=== PATIENT | male | born 1985 | race African-American/Black ===

== ENCOUNTER 2017-04-16 09:04 | Emergency (ER) | payer SELFPAY ==
[~2017-04-16] VITALS: Ht 175.3 cm; Wt 59.0 kg
[2017-04-16 09:14] VITALS: BP 129/80
[2017-04-16] MEDS ORDERED: NAPROXEN 500 MG TABLET PO STA (09:34)
[2017-04-16] MEDS ORDERED: HYDROcodone/APAP 5/325MG 1 TAB TABLET PO ONE (09:45)
[2017-04-16] MEDS ORDERED: predniSONE 20 MG TABLET PO ONE (09:45)
[2017-04-16] MEDS ORDERED: CYCLOBENZAPRINE 10 MG TABLET. PO ONE (09:45)
[2017-04-16] MEDS ORDERED: CYCL10TA2 PO (09:47)
[2017-04-16] MEDS ORDERED: NAPR500T8 PO (09:47)
[2017-04-16] MEDS ORDERED: HYDR-971 PO (09:47)
[2017-04-16] MEDS ORDERED: METH4TAB2 PO (09:47)
--- NOTE | 2017-04-16 09:48 | PHYS DOC ---
Past Medical History Past Medical History: No Pertinent History Past Surgical History: No Surgical History Alcohol Use: Occasionally Additional Information: 2-3 DRINKS WEEKLY Drug Use: Marijuana Adult General Chief Complaint Chief Complaint: Neck Pain HPI HPI Patient is a 32 year old male with no significant medical history who presents with neck and low back pain. Patient states one week ago he had low back pain radiating into the mid back. He states yesterday he stretched and developed left lateral neck pain as well as right lateral neck pain, patient describes the pain as throbbing and rates the pain as mild. Patient states his pain is worse when he turns his neck to the sides. Patient denies any trauma. Denies any pain radiating to bilateral lower extremities. Denies any loss of bowel bladder function. Review of Systems Review of Systems Constitutional: Denies fever or chills [] Eyes: Denies change in visual acuity, redness, or eye pain [] HENT: Denies nasal congestion or sore throat [] Respiratory: Denies cough or shortness of breath [] Cardiovascular: No additional information not addressed in HPI [] GI: Denies abdominal pain, nausea, vomiting, bloody stools or diarrhea [] : Denies dysuria or hematuria [] Musculoskeletal: Neck and back pain Integument: Denies rash or skin lesions [] Current Medications Current Medications Current Medications Medications (Trade) Dose Ordered Sig/River Start Time Stop Time Status Last Admin Dose Admin Acetaminophen/ Hydrocodone Bitart (Lortab 5/325) 1 tab 1X ONCE 04/16/17 09:45 04/16/17 09:46 UNV Cyclobenzaprine HCl (Flexeril) 10 mg 1X ONCE 04/16/17 09:45 04/16/17 09:46 UNV Naproxen (Naprosyn) 500 mg 1X STAT 04/16/17 09:34 04/16/17 09:35 UNV Prednisone (Prednisone) 60 mg 1X ONCE 04/16/17 09:45 04/16/17 09:46 UNV Physical Exam Physical Exam Constitutional: Well developed, well nourished, no acute distress, non-toxic appearance. [] HENT: Normocephalic, atraumatic, bilateral external ears normal, oropharynx moist, no oral exudates, nose normal. [] Eyes: PERRLA, EOMI, conjunctiva normal, no discharge. [] Neck: No deformity noted on the cervical spine. Normal range of motion, diffuse paraspinal muscle tenderness to t bilateral lateral spine, no midline cervical spine tenderness, supple, no stridor. [] Cardiovascular:Heart rate regular rhythm, no murmur [] Lungs & Thorax: Bilateral breath sounds clear to auscultation [] Abdomen: Bowel sounds normal, soft, no tenderness, no masses, no pulsatile masses. [] Skin: Warm, dry, no erythema, no rash. [] Back: No tenderness, no CVA tenderness. [] Extremities: Diffuse paraspinal muscle tenderness to the thoracic and lumbar spine, no midline lumbar spine or thoracic spine tenderness, no cyanosis, no clubbing, ROM intact, no edema. [] Neurologic: Alert and oriented X 3, normal motor function, normal sensory function, no focal deficits noted. [] Psychologic: Affect normal, judgement normal, mood normal. [] Current Patient Data Vital Signs Vital Signs Date Time Temp Pulse Resp B/P (MAP) Pulse Ox O2 Delivery O2 Flow Rate FiO2 04/16/17 09:14 97.8 85 18 100 Room Air 97.8 EKG EKG [] Radiology/Procedures Radiology/Procedures [] Course & Med Decision Making Course & Med Decision Making Pertinent Labs and Imaging studies reviewed. (See chart for details) Patient is in the ED with neck as well as back pain. Neck pain began yesterday after stretching but back pain has been going on for week. Talked to patient about x-rays benefits and risk. Patient was discharged with Medrol Dosepak, [place], Naproxen and Flexeril, he was instructed to follow-up with his own primary care doctor in one week or a doctor from the list provided. Dragon Disclaimer Dragon Disclaimer This electronic medical record was generated, in whole or in part, using a voice recognition dictation system. Departure Departure Impression: Primary Impression: Cervical strain, acute Additional Impressions: Thoracic back pain Back pain Disposition: 01 HOME, SELF-CARE Condition: STABLE Referrals: NO PCP (PCP) follow up with your doctor in one week Patient Instructions: Back Pain, Adult, Cervical Strain and Sprain with Rehab- [facility] Additional Instructions: You were seen for neck and back pain your neck pain is suspicious for muscle strain. We put you on medications. Do not drive or operate machinery on the muscle relaxer Flexeril on the hydrocodone. You can apply heat to ice to your back was on neck. Follow-up with a doctor from the list provided in one week. Scripts Naproxen (NAPROXEN) 500 Mg Tablet.dr 1 TAB PO BID, #30 TAB 0 Refills Prov: NALINI MONSIVAIS KATE 04/16/17 Methylprednisolone (MEDROL) 4 Mg Tab.ds.pk 1 PKG PO UD, #1 PKG Prov: SUZIMarthaNALINI LOVE 04/16/17 Cyclobenzaprine Hcl (CYCLOBENZAPRINE HCL) 10 Mg Tablet 1 TAB PO TID, #30 TAB Prov: NALINI MONSIVAIS KATE 04/16/17 Hydrocodone/Apap 5-325 (NORCO 5-325 TABLET) 1 Each Tablet 1-2 TAB PO Q4-6HRS, #20 TAB Prov: NALINI MONSIVAIS KATE 04/16/17 Problem Qualifiers Primary Impression: Cervical strain, acute Encounter type: initial encounter Qualified Codes: S16.1XXA - Strain of muscle, fascia and tendon at neck level, initial encounter Additional Impressions: Thoracic back pain Chronicity: acute Back pain laterality: bilateral Qualified Codes: M54.6 - Pain in thoracic spine Back pain Back pain location: low back pain Chronicity: acute Back pain laterality: bilateral Sciatica presence: without sciatica Qualified Codes: M54.5 - Low back pain LOINALINI LOVE Apr 16, 2017 09:48
== END 2017-04-16 09:59 | disposition home or self-care (01) ==
LOC: ER 09:04
DX: S16.1XXA Strain of muscle, fascia and tendon at neck level, initial encounter (principal); M54.6 Pain in thoracic spine; M54.5 Low back pain; X58.XXXA Exposure to other specified factors, initial encounter; Y93.89 Activity, other specified; Y92.89 Other specified places as the place of occurrence of the external cause; Y99.8 Other external cause status
CPT/HCPCS: 99284; J7512